=== PATIENT | male | born 1950 | race Hispanic/Latino ===

== ENCOUNTER → 2017-08-29 | Outpatient (CLI) | payer OTHER ==
[~2017-08-29] MED LIST: ASPI-555 PO; ATOR10TA69 PO; CARV25TA PO; CLOP75TA32 PO; DRON400T2 PO; FISH1CAP49 PO; FURO40TA7 PO; GEMF600T3 PO; LOSA1TAB37 PO; LOSA50TA37 PO; NIAC500T22 PO; NIAC500T7 PO; OMEG-98 PO; OMEP20CA10 PO; SOTA120T PO; TAMS-1 PO; TYL3 PO; TYLENOL PM PO; VITA400C25 PO; WARF5TAB8 PO
== END ==
LOC: SHCH 14:01
PROVIDERS: ATTEND Internal Medicine Cardiovascular Disease
DX: R07.9 Chest pain, unspecified (principal); R06.02 Shortness of breath; Z95.1 Presence of aortocoronary bypass graft
CPT/HCPCS: 93306

== ENCOUNTER → 2017-10-26 | Outpatient (CLI) | payer OTHER ==
[~2017-10-26] VITALS: Ht 180.3 cm; Wt 103.0 kg
[~2017-10-26] MED LIST changes: +REGADENOSON 0.4 MG/5 ML PF SYG IVP SCH
== END | disposition home or self-care (01) ==
LOC: SHCH 09:44
PROVIDERS: ATTEND Internal Medicine Cardiovascular Disease
DX: I42.9 Cardiomyopathy, unspecified (principal)
CPT/HCPCS: 78452; 93017; 96374; A9500 ×2; J2785

== ENCOUNTER 2017-12-05 07:22 | Day surgery (SDC) | payer OTHER ==
[2017-11-30 13:36] VITALS: BP 111/67
[2017-11-30 13:45] LABS: BASOPHILS % (AUTO) 0.7 % (0.0-5.0); HEMATOCRIT 35.4 % (42-54); LYMPHOCYTES % (AUTO) 14.1 % (21.0-51.0); MEAN CORPUSCULAR HEMOGLOBIN 28.6 pg (27.0-33.0); MEAN CORPUSCULAR HGB CONC 33.6 g/dL (32.0-36.0); MEAN CORPUSCULAR VOLUME 85.1 fL (79-99); MONOCYTES % (AUTO) 14.9 % (3.0-13.0); NEUTROPHILS % (AUTO) 67.3 % (40.0-77.0); PLATELET COUNT (AUTO) 258 K/uL (130-400); RED BLOOD CELL COUNT(AUTO) 4.16 MIL/uL (4.50-6.20); RED CELL DISTRIBUTION WIDTH 14.9 % (11.0-15.5); WHITE BLOOD COUNT (AUTO) 7.1 K/uL (4.8-10.8)
[2017-11-30 13:55] LABS: POTASSIUM 3.8 mmol/L (3.5-5.1)
[2017-11-30 13:59] LABS: INR 2.37 (0.85-1.15); PARTIAL THROMBOPLASTIN TIME 37.6 SEC (26.3-35.5); PROTHROMBIN TIME 24.5 SEC (9.6-11.6)
[~2017-12-05] VITALS: Ht 180.3 cm; Wt 106.8 kg
[2017-12-05] VITALS (17 sets, daily range): BP systolic 92–137; BP diastolic 58–91
[~2017-12-05 07:22] MED LIST changes: -LOSA1TAB37 PO; -NIAC500T22 PO; -OMEG-98 PO; -REGADENOSON 0.4 MG/5 ML PF SYG IVP SCH; -SOTA120T PO; -TYL3 PO
[2017-12-05] MEDS ORDERED: SODIUM CHLORIDE 0.9% 1000ML 1,000 ML IV SCH (08:00)
== END 2017-12-05 12:15 | disposition home or self-care (01) ==
LOC: DAH 07:22
PROVIDERS: ATTEND Internal Medicine Cardiovascular Disease
DX: I48.1 Persistent atrial fibrillation (principal); I47.2 Ventricular tachycardia; I50.22 Chronic systolic (congestive) heart failure; I25.10 Atherosclerotic heart disease of native coronary artery without angina pectoris; Z79.82 Long term (current) use of aspirin; Z95.810 Presence of automatic (implantable) cardiac defibrillator; Z79.899 Other long term (current) drug therapy; Z95.5 Presence of coronary angioplasty implant and graft; Z88.2 Allergy status to sulfonamides
CPT/HCPCS: 36415; 80048; 85025; 85610; 85730; 92960; 93005; A4606; J7030

== ENCOUNTER → 2018-04-09 | Outpatient (CLI) | payer OTHER ==
[~2018-04-09] MED LIST changes: -GEMF600T3 PO; +GEMF600T4 PO; +LOSA50TA25 PO; -LOSA50TA37 PO
== END | disposition home or self-care (01) ==
LOC: SHCH 09:58
PROVIDERS: ATTEND Internal Medicine Cardiovascular Disease
DX: Z09 Encounter for follow-up examination after completed treatment for conditions other than malignant neoplasm (principal)
CPT/HCPCS: 93971

== ENCOUNTER → 2019-09-12 | Outpatient (CLI) | payer OTHER ==
[~2019-09-12] MED LIST changes: -GEMF600T4 PO; +GEMF600T5 PO; -LOSA50TA25 PO; +LOSA50TA64 PO; -OMEP20CA10 PO; +OMEP20CA12 PO
== END | disposition home or self-care (01) ==
LOC: OIH 09:34
PROVIDERS: ATTEND Family Medicine
DX: I70.201 Unspecified atherosclerosis of native arteries of extremities, right leg (principal)
CPT/HCPCS: 73552

== ENCOUNTER → 2020-10-27 | Outpatient (CLI) | payer OTHER ==
[~2020-10-27] MED LIST changes: -ASPI-555 PO; +ASPI-556 PO; -DRON400T2 PO; +DRON400T7 PO; -GEMF600T5 PO; +GEMF600T89 PO
== END | disposition home or self-care (01) ==
LOC: OIH 10:37
PROVIDERS: ATTEND Neuromusculoskeletal Medicine & OMM
DX: M47.816 Spondylosis without myelopathy or radiculopathy, lumbar region (principal); M48.061 Spinal stenosis, lumbar region without neurogenic claudication; M85.88 Other specified disorders of bone density and structure, other site; I70.0 Atherosclerosis of aorta
CPT/HCPCS: 72114

== ENCOUNTER → 2023-02-09 | Outpatient (CLI) | payer OTHER ==
[~2023-02-09] MED LIST changes: +AEC81 PO; -ASPI-556 PO; -ATOR10TA69 PO; -DRON400T7 PO; +FERS325 PO; -FISH1CAP49 PO; +FOLI1 PO; +GABA-533 PO; -NIAC500T7 PO; +OMEG-148 PO; -OMEP20CA12 PO; +SOTA80TA PO
== END | disposition home or self-care (01) ==
LOC: RAH 14:21
PROVIDERS: ATTEND Urology
DX: K57.30 Diverticulosis of large intestine without perforation or abscess without bleeding (principal); R31.0 Gross hematuria; M47.815 Spondylosis without myelopathy or radiculopathy, thoracolumbar region; I51.7 Cardiomegaly; I25.10 Atherosclerotic heart disease of native coronary artery without angina pectoris; N28.1 Cyst of kidney, acquired
CPT/HCPCS: 74176

== ENCOUNTER → 2024-01-30 | Outpatient (CLI) | payer OTHER ==
[~2024-01-30] MED LIST changes: -GABA-533 PO; +GABA-534 PO
== END | disposition home or self-care (01) ==
LOC: SHCH 08:14
PROVIDERS: ATTEND Internal Medicine Cardiovascular Disease
DX: I08.8 Other rheumatic multiple valve diseases (principal); I48.91 Unspecified atrial fibrillation; Z95.1 Presence of aortocoronary bypass graft; Z95.2 Presence of prosthetic heart valve; Z95.0 Presence of cardiac pacemaker
CPT/HCPCS: 93306

== ENCOUNTER 2024-03-19 23:52 | Observation (INO) | payer OTHER ==
[~2024-03-19] VITALS: Ht 180.3 cm; Wt 96.5 kg
[2024-03-20] VITALS (7 sets, daily range): BP systolic 121–125; BP diastolic 69–77; PULSE 80; RESP 16–20; TEMP 98.1–99.4; O2SAT 95
[2024-03-20 00:33] LABS: BASOPHILS # (AUTO) 0.06 K/uL (0.00-0.20); BASOPHILS % (AUTO) 0.5 % (0.0-5.0); CREATININE 0.9 mg/dL (0.5-1.3); EOSINOPHILS # (AUTO) 0.15 K/uL (0.00-0.70); EOSINOPHILS % (AUTO) 1.3 % (0.0-8.0); HEMATOCRIT 39.7 % (42-54); IMMATURE GRANULOCYTE ABSOLUTE 0.05 K/uL (0-1); LYMPHOCYTES # (AUTO) 1.2 K/uL (1.0-4.8); LYMPHOCYTES % (AUTO) 10.5 % (21.0-51.0); MEAN CORPUSCULAR HEMOGLOBIN 30.9 pg (27.0-33.0); MEAN CORPUSCULAR HGB CONC 34.5 g/dL (32.0-36.0); MEAN CORPUSCULAR VOLUME 89.4 fL (79-99); MONOCYTES # (AUTO) 1.4 K/uL (0.1-1.0); MONOCYTES % (AUTO) 12.5 % (3.0-13.0); NEUTROPHILS # (AUTO) 8.3 K/uL (1.8-7.7); NEUTROPHILS % (AUTO) 74.8 % (40.0-77.0); PLATELET COUNT (AUTO) 299 K/uL (130-400); POTASSIUM 3.8 mmol/L (3.5-5.1); RED BLOOD CELL COUNT(AUTO) 4.44 MIL/uL (4.50-6.20); RED CELL DISTRIBUTION WIDTH 13.2 % (11.0-15.5); WHITE BLOOD COUNT (AUTO) 11.2 K/uL (4.8-10.8)
[2024-03-20 00:56] LABS: B-TYPE NATRIURETIC PEPTIDE 155 pg/mL (0-100)
[2024-03-20] MEDS ORDERED: GLUCAGON 1MG KIT 1 MG ML IM PRN (02:30)
[2024-03-20] MEDS ORDERED: acetaMINOPHEN 325 MG TAB PO PRN (02:30)
[2024-03-20] MEDS ORDERED: TEMAZEPAM 15 MG CAPSULE PO PRN (02:30)
[2024-03-20] MEDS ORDERED: doCUSate SODIUM 100 MG CAP PO PRN (02:30)
[2024-03-20] MEDS ORDERED: DEXTROSE 50%-WATER 50 ML DISP.SYRIN IV PRN (02:30)
[2024-03-20] MEDS ORDERED: MAGNESIUM 2GM PREMIX 50ML 50 ML IV PRN (02:30)
[2024-03-20] MEDS ORDERED: hydrALAZine 20MG/ML VIAL IV PRN (02:30)
[2024-03-20] MEDS ORDERED: LACTULOSE 20 GM/30 ML UDCUP PO PRN (02:30)
[2024-03-20] MEDS ORDERED: POTASSIUM CHLORIDE 20MEQ/100ML 100 ML IV PRN (02:30)
[2024-03-20] MEDS ORDERED: acetaMINOPHEN 650 MG SUPPOSITORY RC PRN (02:30)
[2024-03-20] MEDS: furoSEMIDE 40MG VIAL IV ONE (02:30)
[2024-03-20] MEDS ORDERED: ONDANSETRON 4MG INJ IVP PRN (02:30)
[2024-03-20] MEDS: INSULIN humuLIN R 100 UNIT/ML 3ML SQ SCH (06:42)
[2024-03-20] MEDS ORDERED: TRAM50TA4 PO (07:40)
[2024-03-20] MEDS ORDERED: ATOR10TA69 PO (07:41)
[2024-03-20] MEDS: ASPIRIN 81MG CHEW TAB PO SCH (08:25)
[2024-03-20 10:58] LABS: BASOPHILS # (AUTO) 0.04 K/uL (0.00-0.20); BASOPHILS % (AUTO) 0.4 % (0.0-5.0); EOSINOPHILS % (AUTO) 0.9 % (0.0-8.0); HEMATOCRIT 38.7 % (42-54); IMMATURE GRANULOCYTE ABSOLUTE 0.04 K/uL (0-1); LYMPHOCYTES # (AUTO) 1.1 K/uL (1.0-4.8); LYMPHOCYTES % (AUTO) 10.5 % (21.0-51.0); MEAN CORPUSCULAR HEMOGLOBIN 30.9 pg (27.0-33.0); MEAN CORPUSCULAR HGB CONC 33.6 g/dL (32.0-36.0); MEAN CORPUSCULAR VOLUME 91.9 fL (79-99); MONOCYTES # (AUTO) 1.3 K/uL (0.1-1.0); MONOCYTES % (AUTO) 12.6 % (3.0-13.0); NEUTROPHILS % (AUTO) 75.2 % (40.0-77.0); PLATELET COUNT (AUTO) 284 K/uL (130-400); RED BLOOD CELL COUNT(AUTO) 4.21 MIL/uL (4.50-6.20); RED CELL DISTRIBUTION WIDTH 13.3 % (11.0-15.5); WHITE BLOOD COUNT (AUTO) 10.7 K/uL (4.8-10.8)
[2024-03-20 11:00] LABS: ALBUMIN 3.9 g/dL (3.5-5.0); BILIRUBIN,TOTAL 0.7 mg/dL (0.2-1.0); MAGNESIUM 2.2 mg/dL (1.80-2.40); PHOSPHORUS 3.9 mg/dL (2.5-4.9); POTASSIUM 3.8 mmol/L (3.5-5.1); TOTAL PROTEIN, SERUM 7.4 g/dL (6.0-8.3)
[2024-03-20 11:39] LABS: INR 3.37 (0.85-1.15); PROTHROMBIN TIME 33.3 SEC (9.6-11.6)
[2024-03-20] MEDS ORDERED: furoSEMIDE 40MG VIAL IV SCH (15:00)
[2024-03-20] MEDS ORDERED: atorVAStatin 40 MG TABLET PO SCH (21:00)
== END 2024-03-20 14:00 | disposition home or self-care (01) ==
LOC: EDH 23:52 → EDHIP 03-20 02:09 → 2DH 03-20 04:18
PROVIDERS: ADMIT Internal Medicine Critical Care Medicine; ATTEND Internal Medicine Critical Care Medicine
DX: I25.10 Atherosclerotic heart disease of native coronary artery without angina pectoris (principal); Z95.810 Presence of automatic (implantable) cardiac defibrillator; I11.0 Hypertensive heart disease with heart failure; I50.42 Chronic combined systolic (congestive) and diastolic (congestive) heart failure; E78.5 Hyperlipidemia, unspecified; D72.829 Elevated white blood cell count, unspecified; G47.33 Obstructive sleep apnea (adult) (pediatric); I47.20 Ventricular tachycardia, unspecified; I34.0 Nonrheumatic mitral (valve) insufficiency; I48.19 Other persistent atrial fibrillation; I25.2 Old myocardial infarction; I25.5 Ischemic cardiomyopathy; Z95.1 Presence of aortocoronary bypass graft; Z79.01 Long term (current) use of anticoagulants; Z79.899 Other long term (current) drug therapy; Z88.2 Allergy status to sulfonamides; Z95.2 Presence of prosthetic heart valve
CPT/HCPCS: 96374; 99285; 82550; 83735; 84100; 84484 ×3; 80053; 83880; 85025 ×2; 85610; 82948; 36415; 71045; 93005; 84145; G0378 ×12; J1940; 80048

== ENCOUNTER → 2024-04-22 | Outpatient (CLI) | payer OTHER ==
[~2024-04-22] MED LIST changes: -AEC81 PO; +ATOR10TA69 PO; -CLOP75TA32 PO; -GABA-534 PO; +IOHEXOL 350 MG/ML 100ML INFUS..BTL IV ONE; -TAMS-1 PO; +TRAM50TA4 PO
== END | disposition home or self-care (01) ==
LOC: RAH 09:39
PROVIDERS: ATTEND Internal Medicine Cardiovascular Disease
DX: I25.10 Atherosclerotic heart disease of native coronary artery without angina pectoris (principal); R07.9 Chest pain, unspecified
CPT/HCPCS: 75574; Q9967

== ENCOUNTER 2024-09-24 06:57 | Emergency (ER) | payer OTHER ==
[~2024-09-24] VITALS: Ht 180.3 cm; Wt 102.1 kg
[~2024-09-24 06:57] MED LIST changes: -IOHEXOL 350 MG/ML 100ML INFUS..BTL IV ONE
--- NOTE | 2024-09-24 07:36 | ERN ---
General Chief Complaint: Congestion Stated Complaint: CHEST CONGESTION Time Seen by MD: 07:12 Source: patient, family History of Present Illness Initial Comments Patient is a 73-year-old gentleman coming in to be evaluated for cough. Per patient he has been having a cough for two days. Does has a history of CAD in his on diuretics for CHF as well. He was exposed to same symptoms by family members. No Fever or chills. Allergies: Coded Allergies: sulfamethoxazole (Unverified Allergy, Unknown, 06/15/16) trimethoprim (Unverified Allergy, Unknown, 06/15/16) Home Meds Active Scripts Folic Acid (Folvite) 1 Mg Tab, 1 MG PO DAILY for 30 Days, #30 TAB 0 Refills Prov:DARRIAN AYALA FLARE BREAKER 02/28/21 Reported Medications Atorvastatin Calcium (Atorvastatin Calcium) 10 Mg Tablet, 10 MG PO HS, TAB 03/20/24 Tramadol Hcl (Tramadol HCl) 50 Mg Tablet, 50 MG PO Q6HPRN PRN for PAIN, TAB 03/20/24 Losartan Potassium (Losartan Potassium) 50 Mg Tablet, 50 MG PO HS, TAB 02/26/21 Warfarin Sodium (Jantoven) 5 Mg Tablet, 5 MG PO HS, TAB 02/26/21 Gemfibrozil (Gemfibrozil) 600 Mg Tablet, 600 MG PO BID, TAB 02/26/21 Carvedilol (Carvedilol) 25 Mg Tablet, 25 MG PO BID, TAB 02/26/21 Ferrous Sulfate (Ferrous Sulfate) 325 Mg Ectab, 325 MG PO BID, TAB.EC 02/26/21 Sotalol HCl (Sotalol) 80 Mg Tablet, 80 MG PO BID, TAB 02/26/21 Layton-3S/Dha/Epa/Fish Oil (Fish Oil 1,000 mg Softgel) 1 Each Capsule, 1 EACH PO DAILY, CAP 02/26/21 Furosemide (Lasix 40Mg Tab) 40 Mg Tablet, 40 MG PO DAILY, TAB 11/30/17 [Tylenol Pm] No Conflict Check, 250 MG PO AD PRN for PRN PAIN 11/30/17 Vitamin E (Vitamin E) 400 Unit Capsule, 400 UNIT PO DAILY, CAP 11/30/17 Past Medical History Past Medical History: CHF, High Cholesterol, Heart Disease, Hypertension Past Surgical History: CABG, Other Surgical History Other: MECHANICAL VALVE REPLACEMENT ROS Dictation CONSTITUTIONAL: No chills, no fever, no weakness, no diaphoresis, no malaise. HEAD/FACE: No signs of trauma. EENT: No eye pain, no blurred vision, no tearing, no double vision, no ear pain, no ear discharge, no nose pain, no nasal congestion, no throat pain, no throat swelling, no mouth pain. RESPIRATORY: No cough, no orthopnea, no SOB, no stridor, no wheezing. CARDIOVASCULAR: No chest pain, no edema, no palpitations, no syncope. GASTROINTESTINAL/ABDOMINAL: No abdominal pain, no constipation, no diarrhea, no nausea, no vomiting. GENITOURINARY: No abnormal discharge, no dysuria, no frequent urination, no hematuria. No complaints of pain in the genitals. MUSCULOSKELETAL: No back pain, no gout, no joint pain, no joint swelling, no muscle pain, no muscle stiffness, no neck pain. INTEGUMENTARY: No change in color, no change in hair/nails, no dryness, no lesion, no lumps, no rash. NEUROLOGICAL/PSYCH: No anxiety, not depressed, no emotional problem, no headache, no numbness, no pre-existing deficit, no history of seizures, no tremors, no weakness. HEMATOLOGIC/LYMPHATIC: Not anemic, no history of blood clots, no apparent bleeding, no bruising, glands not swollen. All Systems Negative, Except as Noted. Physical Exam Physical Exam Dictation VITAL SIGNS: Reviewed. GENERAL APPEARANCE: Alert, oriented x3, no acute distress, obese. HEAD AND FACE: Non-traumatic. EYES: PERRL, pink conjunctivas, eyelid no trauma, anterior chamber clear. EARS: Pinnas intact and no signs of trauma or erythema. Ear canals clear and no discharge. TMs no erythema. NOSE: No discharge, no bleeding. OROPHARYNX: Mouth normal, teeth no caries, tongue pink. Pharynx clear, no erythema. Tonsils no exudates, no abscesses noted. Mucous membrane moist. NECK: Supple, non-tender, no thyromegaly, no masses, no JVD, no bruits. BREAST: Deferred. CHEST: No tenderness, no crepitus, no paradoxical movement, no retractions. LUNGS: Clear, well-ventilated, symmetric, no rales, no wheezing, no rhonchi, no stridor, good breath sounds bilaterally. HEART: Regular rate, regular rhythm, no murmur, no gallops. VASCULAR: No peripheral edema. ABDOMEN: Soft, positive bowel sounds, nondistended, no guarding, nontender, no rebound, no masses no hepatomegaly, no splenomegaly, no Woods's sign, no hernias. RECTAL: Deferred. GENITAL: Deferred. NEUROLOGICAL: Normal speech, gross motor function intact, gross sensory function intact. MUSCULOSKELETAL: Neck nontender, full range of motion, back nontender, full range of motion. EXTREMITIES: Nontender, full range of motion. SKIN: Color pink, dry, no turgor, no rash, no lacerations, no abrasions, no contusions. LYMPHATICS: Deferred. Results Laboratory and Microbiology Lab and Micro Result Laboratory Tests Test 09/24/24 07:04 09/24/24 07:07 09/24/24 07:28 Sodium Level 140 mmol/L (136-145) Potassium Level 3.5 mmol/L (3.5-5.1) Chloride Level 104 mmol/L (101-111) Carbon Dioxide Level 30 mmol/L (21-32) Blood Urea Nitrogen 19 mg/dL (7-18) H Creatinine 0.8 mg/dL (0.5-1.3) Glomerular Filtration Rate Calc 93 mL/min (>90) Random Glucose 114 mg/dL (70-105) H Total Calcium 8.8 mg/dL (8.5-10.1) Troponin I High Sensitivity 10 ng/L (4-75) Influenza Type A Antigen Negative For Type A Influenza Type B Antigen Negative For Type B SARS-CoV-2, RNA, NAAT NEGATIVE SARS CoV-2 Group A Streptococcus Rapid negative (NEGATIVE) White Blood Count 11.7 K/uL (4.8-10.8) H Red Blood Count 3.73 MIL/uL (4.50-6.20) L Hemoglobin 11.4 g/dL (14.0-18.0) L Hematocrit 34.6 % (42-54) L Mean Corpuscular Volume 92.8 fL (79-99) Mean Corpuscular Hemoglobin 30.6 pg (27.0-33.0) Mean Corpuscular Hemoglobin Concent 32.9 g/dL (32.0-36.0) Red Cell Distribution Width 13.3 % (11.0-15.5) Platelet Count 273 K/uL (130-400) Mean Platelet Volume 8.8 fL (7.5-10.5) Immature Granulocyte % (Auto) 0.3 % (0-1) Neutrophils (%) (Auto) 83.4 % (40.0-77.0) H Lymphocytes (%) (Auto) 4.5 % (21.0-51.0) L Monocytes (%) (Auto) 10.4 % (3.0-13.0) Eosinophils (%) (Auto) 1.0 % (0.0-8.0) Basophils (%) (Auto) 0.4 % (0.0-5.0) Neutrophils # (Auto) 9.7 K/uL (1.8-7.7) H Lymphocytes # (Auto) 0.5 K/uL (1.0-4.8) L Monocytes # (Auto) 1.2 K/uL (0.1-1.0) H Eosinophils # (Auto) 0.12 K/uL (0.00-0.70) Basophils # (Auto) 0.05 K/uL (0.00-0.20) Absolute Immature Granulocyte (auto 0.04 K/uL (0-1) Nucleated Red Blood Cells 0.0 % (0.0-0.19) White Cell Morphology Comment See comments B-Type Natriuretic Peptide 212 pg/mL (0-100) H Labs Reviewed?: Yes EKG/XRAY/US/CT/MRI X-RAY Comment CHEST XRAY- PERIBRONCHIAL CONGESTION, BRONCHITIS MDM MDM: DIFFERENTIAL DIAGNOSIS: URI, BRONCHITIS, PNEUMONIA, SINUSITIS, PATIENT IS A 73-YEAR-OLD MALE COMING IN TO BE EVALUATED FOR URI SYMPTOMS. ON PHYSICAL EXAM BILATERAL NASAL TURBINATE SWELLING MILD CRACKLES. PATIENT RECEIVED BREATHING TREATMENT STATES HE FEELS MUCH BETTER WILL BE DISCHARGED IN STABLE CONDITION WITH A DIAGNOSIS OF URI. MEDICATION WILL BE PROVIDED FOR SYMPTOMATIC RELIEF. I DID ADVISED HIM APPROPRIATE FOLLOW UP WITH PCP IN 1-2 DAYS. ED Course Orders Procedure Category Date Status Time Cbc With Differential LAB 09/24/24 Complete 07:09 Basic Metabolic Panel LAB 09/24/24 Complete 07:09 Troponin I High LAB 09/24/24 Complete Sensitivity 07:09 12 Lead Ekg Tracing- EKG 09/24/24 Complete Technical 07:09 Chest 1vw RAD 09/24/24 Taken 07:09 Covid Rna Naat LAB 09/24/24 Complete 07:09 Influenza Type A & B, LAB 09/24/24 Complete Rapid 07:09 Rapid (Group A Strep) LAB 09/24/24 Complete 07:09 B-Type Natriuretic LAB 09/24/24 Complete Peptide 07:09 Methylprednisolone PHA 09/24/24 Complete Succ 125mg (Solu-Medr 09:00 Ipratropium/Albuterol PHA 09/24/24 Complete Neb (Duoneb) 09:00 Current Medications Medications (Trade) Dose Ordered Sig/Serina Route PRN Reason Start Time Stop Time Status Last Admin Dose Admin Albuterol (DUOneb) 2 udvial ONCE ONCE IH 09/24/24 09:00 09/24/24 09:01 DC Methylprednisolone Sodium Succinate (Solu-medROL 125MG) 125 mg ONCE ONCE IVP 09/24/24 09:00 09/24/24 09:01 DC 09/24/24 09:17 Vital Signs Date Time Temp Pulse Resp B/P (MAP) Pulse Ox O2 Delivery O2 Flow Rate FiO2 09/24/24 06:59 98.1 79 18 135/73 95 Room Air 0 09/24/24 06:58 98.2 80 26 124/70 94 Room Air* 0 21 DX & DISP Disposition: Discharge Departure Impression: Primary Impression: URI (upper respiratory infection) Condition: Stable Scripts Loratadine (Loratadine) 10 Mg Tablet 1 TAB PO DAILY for allergy symptoms for 30 Days, #30 TAB 0 Refills Prov: HUMBERTO BINGHAM MD 09/24/24 Doxycycline Hyclate (Doxycycline Hyclate) 100 Mg Capsule 1 CAP PO BID for 10 Days, #20 CAP 0 Refills Prov: HUMBERTO BINGHAM MD 09/24/24 Budesonide/Formoterol Fumarate (Symbicort 160-4.5 Mcg Inhaler) 160 Mcg-4.5 Mcg/Actuation Hfa.aer.ad 2 PUFF IH BID for 30 Days, #10.2 GM 0 Refills Prov: HUMBERTO BINGHAM MD 09/24/24 Additional Instructions: FOLLOW-UP WITH PRIMARY CARE PROVIDER IN 1 TO 2 DAYS. TAKE MEDICATIONS DIRECTED HERE IN THE EMERGENCY ROOM. OKAY TO CONTINUE HOME MEDICATIONS UNLESS OTHERWISE DISCUSSED DURING YOUR VISIT IN THE EMERGENCY ROOM TODAY. RETURN TO YOUR NEAREST EMERGENCY ROOM IF SYMPTOMS WORSEN OR IF THERE IS NO IMPROVEMENT. CALL 911 IF YOU NEED IMMEDIATE ASSISTANCE. TAKE TYLENOL [id number] NEEDED AND IF NO CONTRAINDICATIONS ARE PRESENT. INCREASE ORAL HYDRATION. A WOUND CULTURE OR URINE CULTURE WAS ORDERED HERE IN THE EMERGENCY ROOM DEPARTMENT PLEASE FOLLOW-UP WITH PRIMARY CARE PROVIDER AND ADVISE THEM TO GET REPEAT PORTS FROM OUR FACILITY. IF YOU HAD ANY ROSALIND WRAP/SPLINTS THAT WERE APPLIED HERE, PLEASE DO NOT REMOVE THEM UNTIL YOU SEE YOUR PRIMARY CARE OR SPECIALTY. REFERRALS: Referrals: GABBY ABDALLA MD (PCP) Time of Disposition: 09:55 HUMBETRO BINGHAM MD Sep 24, 2024 07:36
[2024-09-24 07:38] LABS: BASOPHILS # (AUTO) 0.05 K/uL (0.00-0.20); BASOPHILS % (AUTO) 0.4 % (0.0-5.0); EOSINOPHILS # (AUTO) 0.12 K/uL (0.00-0.70); HEMATOCRIT 34.6 % (42-54); IMMATURE GRANULOCYTE ABSOLUTE 0.04 K/uL (0-1); LYMPHOCYTES # (AUTO) 0.5 K/uL (1.0-4.8); LYMPHOCYTES % (AUTO) 4.5 % (21.0-51.0); MEAN CORPUSCULAR HEMOGLOBIN 30.6 pg (27.0-33.0); MEAN CORPUSCULAR HGB CONC 32.9 g/dL (32.0-36.0); MEAN CORPUSCULAR VOLUME 92.8 fL (79-99); MONOCYTES # (AUTO) 1.2 K/uL (0.1-1.0); MONOCYTES % (AUTO) 10.4 % (3.0-13.0); NEUTROPHILS # (AUTO) 9.7 K/uL (1.8-7.7); NEUTROPHILS % (AUTO) 83.4 % (40.0-77.0); PLATELET COUNT (AUTO) 273 K/uL (130-400); RED BLOOD CELL COUNT(AUTO) 3.73 MIL/uL (4.50-6.20); RED CELL DISTRIBUTION WIDTH 13.3 % (11.0-15.5); WHITE BLOOD COUNT (AUTO) 11.7 K/uL (4.8-10.8)
[2024-09-24 07:42] LABS: RAPID GROUP A STREP negative (NEGATIVE)
[2024-09-24 07:48] LABS: SARS-CoV-2, RNA, NAAT NEGATIVE SARS CoV-2 (NEGATIVE)
--- NOTE | 2024-09-24 07:51 | EKG ---
[facility] Test Date: 2024-09-24 Test Time: 06:57:52 Pat Name: SINDHU CORMIER Department: ED Room: Gender: M Lifestyle Coordinator: [id number] : 1950 Requested By: REGINALD ARTIS Order Number: [id number] Reading MD: Kirk Higgins Measurements Intervals [place] Rate: 82 P: -12 CT: 56 QRS: -5 QRSD: 118 T: 129 QT: 415 QTc: 484 Interpretive Statements Ventricular-paced complexes with PVC Compared to ECG 03/20/2024 00:05:32 No significant changes Electronically Signed On 09-25-2024 13:39:20 CDT by Kirk Higgins Please click the below link to view image of tracing.
[2024-09-24 07:52] LABS: INFLUENZA TYPE A Negative For Type A (NEGATIVE); INFLUENZA TYPE B Negative For Type B (NEGATIVE)
[2024-09-24 08:00] VITALS: BP 132/76; TEMP 98.4; O2SAT 98
[2024-09-24 08:02] LABS: B-TYPE NATRIURETIC PEPTIDE 212 pg/mL (0-100)
[2024-09-24 08:44] LABS: CREATININE 0.8 mg/dL (0.5-1.3); POTASSIUM 3.5 mmol/L (3.5-5.1)
[2024-09-24] MEDS: Solu-medROL 125MG VIAL IVP ONE (09:17)
[2024-09-24] MEDS ORDERED: LORA10TA7 PO (09:56)
[2024-09-24] MEDS ORDERED: BUDE10.2 IH (09:56)
[2024-09-24] MEDS ORDERED: DOXY100C5 PO (09:56)
[2024-09-24 10:25] VITALS: PULSE 79; RESP 20
[2024-09-24] MEDS: IpraTROPium/alBUTERol SULFATE 3 ML SOLUTION IH ONE (10:25)
--- NOTE | 2024-09-24 11:28 | HMCIMG ---
PORTABLE CHEST RADIOGRAPH INDICATION: SOB COMPARISON: 03/20/2024 FINDINGS: Median sternotomy wires are in appropriate alignment. Left sided dual chamber pacer and continuous leads remain in customary position. front desk monitor leads overlie the field of view. Heart remains enlarged. The pulmonary vascularity appears nominally enlarged. No abnormal pulmonary parenchymal opacity or consolidation identified. Right costophrenic angle is nominally blunted. No pneumothorax detected. IMPRESSION: Stable cardiomegaly and suspect early mild pulmonary vascular congestion as well as very trace right pleural fluid.
== END 2024-09-24 11:41 | disposition home or self-care (01) ==
LOC: EDH 06:57
DX: J06.9 Acute upper respiratory infection, unspecified (principal); E78.00 Pure hypercholesterolemia, unspecified; I25.10 Atherosclerotic heart disease of native coronary artery without angina pectoris; I11.0 Hypertensive heart disease with heart failure; I50.9 Heart failure, unspecified; Z79.51 Long term (current) use of inhaled steroids; Z79.899 Other long term (current) drug therapy; Z88.1 Allergy status to other antibiotic agents; Z88.2 Allergy status to sulfonamides; Z95.1 Presence of aortocoronary bypass graft; Z95.2 Presence of prosthetic heart valve; Z20.822 Contact with and (suspected) exposure to COVID-19
CPT/HCPCS: 99285; 96374; 71045; 87635; 84484; 80048; 83880; 85025; 87880; 87804 ×2; 36415; 93005; 94640; J2919

== ENCOUNTER 2025-04-23 05:56 | Day surgery (SDC) | payer OTHER ==
--- NOTE | 2025-04-21 10:34 | EKG ---
Test Date: 2025-04-21 Test Time: 10:32:13 Pat Name: SINDHU CORMIER Department: [facility] Room: [facility] Gender: M Fibreglass Laminator: [id number] : 1950 Requested By: SHAYE SOUTH Order Number: [id number] Reading MD: Debby Carlson Measurements Intervals [place] Rate: 80 P: 0 MS: 0 QRS: -8 QRSD: 160 T: 162 QT: 440 QTc: 507 Interpretive Statements Wide QRS rhythm Left bundle branch block Compared to ECG 04/01/2025 10:44:12 Uncertain supraventricular rhythm now present Left bundle-branch block now present Ventricular-paced complex(es) or rhythm no longer present Electronically Signed On 04-23-2025 10:15:21 CDT by Debby Carlson Please click the below link to view image of tracing.
[2025-04-21 10:44] LABS: IMMATURE GRANULOCYTE ABSOLUTE 0.03 K/uL (0-1); NUCLEATED RED BLOOD CELLS 0.0 % (0.0-0.19); PLATELET COUNT (AUTO) 215 K/uL (130-400); RED BLOOD CELL COUNT(AUTO) 3.69 MIL/uL (4.50-6.20); RED CELL DISTRIBUTION WIDTH 13.5 % (11.0-15.5); WHITE BLOOD COUNT (AUTO) 5.4 K/uL (4.8-10.8)
[2025-04-21 10:51] LABS: CREATININE 0.8 mg/dL (0.5-1.3); GLOMERULAR FILTR. RATE CALC 92.0 mL/min (>90); GLUCOSE,RANDOM 143.0 mg/dL (70-105); SODIUM SERUM 142.0 mmol/L (136-145); UREA NITROGEN, BLOOD 19.0 mg/dL (7-18)
[2025-04-21 10:59] LABS: INR 2.8 (0.85-1.15)
[2025-04-21 11:00] VITALS: BP 138/72; PULSE 81; RESP 17; TEMP 97.4
--- NOTE | 2025-04-21 13:48 | NUR ---
INSTRUCTED PATIENT TO HOLD WARFARIN TODAY 04/21/25 AND TOMORROW. REPEAT INR ON THE MORNING OF PROCEDURE PER [facility]
[2025-04-23] VITALS (8 sets, daily range): BP systolic 115–132; BP diastolic 59–73; PULSE 60–81; RESP 15–19; TEMP 96.4–98.1
[~2025-04-23] VITALS: Ht 180.3 cm; Wt 103.3 kg
[~2025-04-23 05:56] MED LIST changes: +ACET-66 PO; +FERR324T4 PO; -FERS325 PO; -OMEG-148 PO; +OMEG1CAP83 PO; +TYLENOL ARTHRITIS PO; -TYLENOL PM PO; +VITA-395 PO; -VITA400C25 PO; +WARF3TAB59 PO; -WARF5TAB8 PO
[2025-04-23 06:35] LABS: INR 1.54 (0.85-1.15)
[2025-04-23] MEDS: 0.9%NACL 1000ML 1,000 ML IV SCH (06:35)
--- NOTE | 2025-04-23 07:00 | NUR ---
ABNORMAL LAB: SHAYE NASH MADE AWARE OF PT: 15.6 AND INR 1.54, NO ORDERS GIVEN.
[2025-04-23] MEDS ORDERED: SODIUM BICARB 50MEQ 50ML VIAL 50 ML ONE (07:16)
[2025-04-23] MEDS ORDERED: LIDOCAINE HCL 1% MDV 50ML VIAL ONE (07:16)
[2025-04-23] MEDS ORDERED: MIDAZOLAM HCL 1 MG/ML 2ML VIAL ONE ×3 (07:44→08:56)
[2025-04-23] MEDS ORDERED: IOHEXOL-350 50ML VIAL IV ONE ×2 (07:49→08:44)
[2025-04-23] MEDS ORDERED: BACITRACIN 1 EACH PACKET TP ONE (09:53)
--- NOTE | 2025-04-23 10:27 | NUR ---
DRESSING: PRESSURE DRESSING TO LEFT UPPER CHEST DRY/INTACT. LEFT ARM IN PLACE TO SLING.
[2025-04-23] MEDS: WARFARIN SODIUM 2 MG TAB PO ONE (10:34)
--- NOTE | 2025-04-23 10:42 | NUR ---
dressing: pressure dressing to left upper chest remains dry/intact with arm sling in place to left arm.
--- NOTE | 2025-04-23 10:57 | NUR ---
dressing: pressure dressing to left upper chest remans dry/intact with arm sling in place to left arm.
--- NOTE | 2025-04-23 11:12 | NUR ---
dressing: pressure dressing to left upper chest remains dry/intact with arm sling in place to left arm.
--- NOTE | 2025-04-23 11:42 | NUR ---
dressing: pressure dressing to left upper chest remains dry/intact with arm sling in place to left arm.
--- NOTE | 2025-04-23 12:12 | NUR ---
DRESSING: PRESSURE DRESSING TO LEFT UPPER CHEST DRY/INTACT WITH ARM SLING IN PLACE TO LEFT ARM.
--- NOTE | 2025-04-23 12:20 | NUR ---
dressing: pressure dressing removed with no redness/swelling noted to surrounding area. non-adhesive dressing with small amount of light pinkish drainage.
--- NOTE | 2025-04-23 12:55 | NUR ---
DRESSING: DRESSING TO LEFT UPPER CHEST WITH SMALL AMOUNT OF PINKISH DRAINAGE. NO ACTIVE BLEEDING PRESENT. NO REDNESS/SWELLING NOTED TO SURROUNDING AREA.
--- NOTE | 2025-04-23 14:44 | HMCIMG ---
EXAM: X-RAY CHEST, ONE VIEW (PORTABLE FRONTAL PROJECTION) Technique: A portable frontal projection of the chest was obtained and submitted for interpretation. Clinical Information: Status post cardiac resynchronization therapy (AUDIT PARTNER) device upgrade. Comparison: None available. Findings: The cardiac silhouette is enlarged, consistent with cardiomegaly. There is mild pulmonary vascular congestion. A multilead cardiac pacemaker/AUDIT PARTNER device is visualized in the left chest wall, with intact leads in satisfactory position. Post-sternotomy changes are identified. The pulmonary mosley are otherwise clear without infiltrates, consolidation, or pleural effusion. The costophrenic angles are sharp bilaterally. No pneumothorax is seen. The visualized osseous structures, including ribs and thoracic spine, show no acute abnormality. IMPRESSION: 1. Cardiomegaly with mild pulmonary vascular congestion. 2. Cardiac pacemaker/AUDIT PARTNER device in left chest wall with intact leads in satisfactory position, status post upgrade. 3. Post-sternotomy changes. 4. No pneumothorax, pleural effusion, or pulmonary infiltrates. 5. No acute osseous abnormalities of the visualized structures. /[place]
== END 2025-04-23 12:55 | disposition home or self-care (01) ==
LOC: DAH 05:56
PROVIDERS: ATTEND Internal Medicine Cardiovascular Disease
DX: Z45.02 Encounter for adjustment and management of automatic implantable cardiac defibrillator (principal); I25.5 Ischemic cardiomyopathy; I49.5 Sick sinus syndrome; I44.7 Left bundle-branch block, unspecified; I25.10 Atherosclerotic heart disease of native coronary artery without angina pectoris; I25.2 Old myocardial infarction; I47.20 Ventricular tachycardia, unspecified; I50.42 Chronic combined systolic (congestive) and diastolic (congestive) heart failure; I48.91 Unspecified atrial fibrillation; Z95.1 Presence of aortocoronary bypass graft; Z95.5 Presence of coronary angioplasty implant and graft; Z88.1 Allergy status to other antibiotic agents; Z79.899 Other long term (current) drug therapy
CPT/HCPCS: 80048; 85025; 85610 ×2; 85730; 36415 ×2; 93005; 33264; 33225; 71045; 99156; 99157 ×6; C1769 ×2; C1882; C1900; J3010 ×3; J0690; J7030; J0665; J3490 ×2; J2250 ×3; Q9967 ×2; A4215; A4222; A4221; A4663; A4216; A4606; A4223 ×3

== ENCOUNTER 2025-06-25 13:30 | Emergency (ER) | payer OTHER ==
[~2025-06-25] VITALS: Ht 182.9 cm; Wt 102.1 kg
[~2025-06-25 13:30] MED LIST changes: +ACET-3540 PO; -ACET-66 PO; +AMIO200T44 PO; +AMIO200T73 PO; -CARV25TA PO; +METO50 PO; -SOTA80TA PO; -TYLENOL ARTHRITIS PO; -WARF3TAB59 PO; +[UNRECOGNIZED DRUG - CODE] PO; +[UNRECOGNIZED DRUG - OTHER] PO
--- NOTE | 2025-06-25 13:39 | NUR ---
PT JUST NOW PLACED IN MY ED BED 14
--- NOTE | 2025-06-25 13:50 | ERN ---
ED Note History of Present Illness Stated Complaint: FAST HEART RATE Chief Complaint: Chest Pain Time Seen by MD: 13:38 Dictation: Patient is a 74-year-old male with a past medical history of CAD, status post CABG , recurrent ventricular tachycardia, status post Bi V ICD placement. The patient states that he is having chest pain since 11:00 a.m., it was 3 hours prior to presentation to this facility. He said that in April 27, 2025 he had his defibrillator device replaced due to malfunction. I review his chart, patient has ejection fraction of 25-30%. Patient EKG on presentation showed ectopic atrial tachycardia rate 145, atrial premature complex. Allergies: Coded Allergies: sulfamethoxazole (Unverified Allergy, Unknown, 06/15/16) trimethoprim (Unverified Allergy, Unknown, 06/15/16) Home Meds Active Scripts Amiodarone HCl (Amiodarone HCl) 200 Mg Tablet, 1 TAB PO DAILY for 30 Days, #30 TAB 2 Refills Prov:SCOTTIE ESPANA MD 05/04/25 Amiodarone HCl (Pacerone) 200 Mg Tablet, 400 MG PO BID for 2 Days, #3 TAB Prov:SCOTTIE ESPANA MD 05/04/25 Metoprolol Tartrate (Lopressor 50Mg Tab) 50 Mg Tab, 50 MG PO TID for 30 Days, #90 TAB 1 Refill Prov:SCOTTIE ESPANA MD 05/04/25 Reported Medications Acetaminophen (8Hr Arthritis Pain Relief) 650 Mg Tablet.er, 650 MG PO Q8 for PAIN, TAB 04/28/25 Acetaminophen/Diphenhydramine (Tylenol Pm Exstr 500-25Mg Cplt) 500 Mg-25 Mg Tablet, 2 EACH PO HS, TAB 04/28/25 [Jentoven 3M Qhs] No Conflict Check, 3 MG PO Q HS 04/28/25 Ferrous Sulfate (Ferrous Sulfate) 324 Mg (65 Mg Iron) Tablet.dr, 324 MG PO BID, TAB 04/21/25 Vitamin E (Dl,Tocopheryl Acet) (Vitamin E) 180 Mg (400 Unit) Capsule, 180 MG PO AM, CAP 04/21/25 [place]-3/Dha/Epa/Fish Oil (Fish Oil 1,400 mg Softgel) 900 Mg (253 Mg-647 Mg)- 1,400 Mg Capsule.dr, 1 EACH PO AM, CAP 04/21/25 Folic Acid (Folvite) 1 Mg Tab, 1 MG PO HS, TAB 04/01/25 Atorvastatin Calcium (Atorvastatin Calcium) 10 Mg Tablet, 10 MG PO HS, TAB 03/20/24 Tramadol Hcl (Tramadol HCl) 50 Mg Tablet, 50 MG PO Q6HPRN PRN for PAIN, TAB 03/20/24 Losartan Potassium (Losartan Potassium) 50 Mg Tablet, 50 MG PO HS, TAB 02/26/21 Gemfibrozil (Gemfibrozil) 600 Mg Tablet, 600 MG PO BID, TAB 02/26/21 Furosemide (Lasix 40Mg Tab) 40 Mg Tablet, 40 MG PO DAILY, TAB 11/30/17 Past Medical History Past Medical History: Arrythmia, CAD, Heart Disease, Hypertension Surgical History: CABG, Pacer/AICD Surgical History Other: MECHANICAL VALVE REPLACEMENT Review of System Dictation NEGATIVE EXCEPT PER HPI Constitutional: Negative for fever,chills, and weight loss Eyes: Negative for injury, pain,redness, and discharge ENT: Negative for injury,pain or swelling Cardiovascular: He reports chest pain palpitation Respiratory: Negative for shortness of breath, cough, and wheezing, Abdomen/GI: Negative for abdominal pain, nausea, vomiting, diarrhea, and constipation Back: Negative for injury and pain : Negative for injury, bleeding and discharge MS/Extremity: Negative for injury and deformity Skin: Negative for rash, and discoloration Neuro: Negative for headache, weakness, numbness, tingling, and seizure Psych: Negative for suicide ideation, homicidal ideation, and hallucinations Initial Vital Sign VS Vital Signs Date Time Temp Pulse Resp B/P (MAP) Pulse Ox O2 Delivery O2 Flow Rate FiO2 06/25/25 13:32 98.2 145 16 102/65 99 Room Air 06/25/25 13:55 0 21 Physical Exam Dictation General: awake, alert, NAD Head/Face: Normocephalic, atraumatic Eyes: PERRL, EOMI, vision at baseline ENT: oral cavity clear, TMs clear, no signs of infection Neck: Trachea midline, supple, no nuchal rigidity Cardiovascular: Irregular heart rate, tachycardia. Respiratory: CTAB, no respiratory distress, No rales or wheezes Abdomen: Soft , no tender Skin: Warm, dry, normal turgor, no rash MS/Extremity: Pulses equal, no cyanosis, neurovascular intact, FROM Neuro: COAx4, GCS 15, strength 5/5, CN 2-12 intact, normal cerebellar exam, normal gait, Psych: Normal behavior, mood, and affect normal Results (Laboratory/Radiology) Laboratory/Radiology Laboratory Tests Test 06/25/25 13:47 06/25/25 16:12 White Blood Count 8.6 K/uL (4.8-10.8) Red Blood Count 3.81 MIL/uL (4.50-6.20) L Hemoglobin 11.2 g/dL (14.0-18.0) L Hematocrit 35.5 % (42-54) L Mean Corpuscular Volume 93.2 fL (79-99) Mean Corpuscular Hemoglobin 29.4 pg (27.0-33.0) Mean Corpuscular Hemoglobin Concent 31.5 g/dL (32.0-36.0) L Red Cell Distribution Width 17.3 % (11.0-15.5) H Platelet Count 332 K/uL (130-400) Mean Platelet Volume 8.9 fL (7.5-10.5) Immature Granulocyte % (Auto) 0.6 % (0-1) Neutrophils (%) (Auto) 75.5 % (40.0-77.0) Lymphocytes (%) (Auto) 8.8 % (21.0-51.0) L Monocytes (%) (Auto) 13.2 % (3.0-13.0) H Eosinophils (%) (Auto) 1.3 % (0.0-8.0) Basophils (%) (Auto) 0.6 % (0.0-5.0) Neutrophils # (Auto) 6.5 K/uL (1.8-7.7) Lymphocytes # (Auto) 0.8 K/uL (1.0-4.8) L Monocytes # (Auto) 1.1 K/uL (0.1-1.0) H Eosinophils # (Auto) 0.11 K/uL (0.00-0.70) Basophils # (Auto) 0.05 K/uL (0.00-0.20) Absolute Immature Granulocyte (auto 0.05 K/uL (0-1) Nucleated Red Blood Cells 0.0 % (0.0-0.19) White Cell Morphology Comment See comments Prothrombin Time 31.3 SEC (9.6-11.6) H Prothromb Time International Ratio 3.33 (0.85-1.15) H Activated Partial Thromboplast Time 41.7 SEC (26.3-35.5) H Sodium Level 139 mmol/L (136-145) Potassium Level 3.9 mmol/L (3.5-5.1) Chloride Level 103 mmol/L (101-111) Carbon Dioxide Level 28 mmol/L (21-32) Blood Urea Nitrogen 16 mg/dL (7-18) Creatinine 0.9 mg/dL (0.5-1.3) Glomerular Filtration Rate Calc 89 mL/min (>90) Random Glucose 131 mg/dL (70-105) H Total Calcium 9.3 mg/dL (8.5-10.1) Total Creatine Kinase 388 U/L (21-232) #H Troponin I High Sensitivity 9 ng/L (4-75) 11 ng/L (4-75) EKG Comment: EKG heart rate 145, showed ectopic atrial tachycardia. NH 146, QT 376, Atrial fibrillation ED Course ED Course Orders Procedure Category Date Status Time Vital Signs Per CPOE 06/25/25 Transmitted Routine 13:44 Prothrombin Time With LAB 06/25/25 Complete INR 13:44 Partial LAB 06/25/25 Complete Thromboplastin Time 13:44 Chest 1vw RAD 06/25/25 Resulted 13:44 12 Lead Ekg Tracing- EKG 06/25/25 Resulted Technical 13:44 Oxygen By Nc/Pulse Ox CPOE 06/25/25 Transmitted 13:44 Maintain Iv CPOE 06/25/25 Transmitted 13:44 Iv Insertion CPOE 06/25/25 Transmitted 13:44 Cardiac Monitoring CPOE 06/25/25 Transmitted 13:44 Pulse Oximetry With CPOE 06/25/25 Transmitted Vs And Prn 13:44 Cbc With Differential LAB 06/25/25 Complete 13:44 Activity: Br W/Brp CPOE 06/25/25 Transmitted With Assist 13:44 Creatine Kinase, Total LAB 06/25/25 Complete 13:44 Troponin I High LAB 06/25/25 Complete Sensitivity 13:44 Basic Metabolic Panel LAB 06/25/25 Complete 13:44 Amiodarone 900mg Vial PHA 06/25/25 Complete (Cordarone 900mg V 15:00 Amiodarone 900mg Vial PHA 06/25/25 Complete (Cordarone 900mg V 15:00 Dextrose 5%-Water PHA 06/25/25 Complete (... W/Amiodarone 900m 21:15 Heparin 25,000 PHA 06/25/25 Complete Units/250ml D5w 15:00 *Nursing CPOE 06/25/25 Transmitted Communication: 14:48 Amiodarone PHA 06/25/25 Complete 150mg/100ml Bag 15:00 Amiodarone PHA 06/25/25 Complete 360mg/200ml Bag 15:15 Troponin I High LAB 06/25/25 Complete Sensitivity 16:04 Current Medications Medications (Trade) Dose Ordered Sig/Serina Route PRN Reason Start Time Stop Time Status Last Admin Dose Admin Amiodarone HCl 150 mg/Dextrose 103 ml @ 618 mls/hr ONCE IV 06/25/25 15:00 06/25/25 14:55 DC Amiodarone HCl 360 mg/Dextrose 207.2 ml @ 33.3 mls/hr AD IV 06/25/25 15:00 06/25/25 14:54 DC Amiodarone HCl 540 mg/Dextrose 310.8 ml @ 16.7 mls/hr [id number] IV 06/25/25 21:15 06/25/25 15:21 DC Amiodarone HCL/ Dextrose 100 ml @ 600 mls/hr ONCE ONCE IV 06/25/25 15:00 06/25/25 15:21 DC Amiodarone HCL/ Dextrose 200 ml @ 33.333 mls/ hr PROTOCOL IV 06/25/25 15:15 06/25/25 15:21 DC Heparin Sodium/ Dextrose 250 ml @ 0 mls/hr PROTOCOL IV 06/25/25 15:00 06/25/25 17:38 DC Vital Signs Date Time Temp Pulse Resp B/P (MAP) Pulse Ox O2 Delivery O2 Flow Rate FiO2 06/25/25 17:26 98.2 60 14 149/85 99 Room Air* 0 21 06/25/25 13:55 144 18 97/69 100 Room Air* 0 21 06/25/25 13:32 98.2 145 16 102/65 99 Room Air Medical Decision Making MDM Patient is a 74-year-old male with a past medical history of CAD, status post CABG , recurrent ventricular tachycardia, status post Bi V ICD placement. The patient states that he is having chest pain since 11:00 a.m., it was 3 hours prior to presentation to this facility. He said that in April 27, 2025 he had his defibrillator device replaced due to malfunction. I review his chart, patient has ejection fraction of 25-30%. Patient EKG on presentation showed ectopic atrial tachycardia rate 145, atrial premature complex. We will started chest pain workup. Device interrogation 15: 15 pm Device was interrogated by [employer], patient was on ventral tachycardia 150s, device was set up to treated at 146, no therapy was given. Myself and the [employer] Ramo Munoz was at bedside as well. ATP given through the device successful patient now the patient, patient now pacing at 60. He does have atrial fibrillation but rate remains on 60. No chest pain at moment. We will hold the amiodarone drip. BP 131/63 heart rate 63 Patient was evaluated at bedside by Dr. Chew associate professor of library science, recommendation is to increase amiodarone to 400 b.i.d., continue beta-terrence 50 b.i.d. Okay to be discharged home and follow up with the associate professor of library science outpatient. DX & DISP Disposition: Discharge Departure Impression: Primary Impression: Atrial fibrillation Additional Impressions: Ventricular tachycardia, Chest pain, CHF (congestive heart failure), NYHA class IV Condition: Stable Additional Instructions: RETURN TO ER FOR ANY ACUTE OR WORSENING SYMPTOMS. FOLLOW-UP IN 1-2 DAYS WITH PRIMARY PROVIDER FOR RECHECK OF TODAY'S SYMPTOMS. Referrals: GABBY ABDALLA MD (PCP) Script was given to the patient at bedside by Dr. Chew for amiodarone 400 mg b.i.d. BASHIR MASTERS MD Jun 25, 2025 13:50
[2025-06-25 13:59] LABS: IMMATURE GRANULOCYTE ABSOLUTE 0.05 K/uL (0-1); NUCLEATED RED BLOOD CELLS 0.0 % (0.0-0.19); PLATELET COUNT (AUTO) 332 K/uL (130-400); RED BLOOD CELL COUNT(AUTO) 3.81 MIL/uL (4.50-6.20); RED CELL DISTRIBUTION WIDTH 17.3 % (11.0-15.5); WHITE BLOOD COUNT (AUTO) 8.6 K/uL (4.8-10.8)
--- NOTE | 2025-06-25 14:02 | NUR ---
INTERROGATION I CALLED AND LEFT A MESSAGE FOR JONATAN FROM [employer] ABOUT OUR DEVICE TO INTERROGATE THE PTS PPM/AICD.
[2025-06-25 14:06] LABS: INR 3.33 (0.85-1.15)
[2025-06-25 14:07] LABS: CREATININE 0.9 mg/dL (0.5-1.3); GLOMERULAR FILTR. RATE CALC 89.0 mL/min (>90); GLUCOSE,RANDOM 131.0 mg/dL (70-105); SODIUM SERUM 139.0 mmol/L (136-145); UREA NITROGEN, BLOOD 16.0 mg/dL (7-18)
[2025-06-25 14:12] LABS: CREATINE KINASE, TOTAL 388.0 U/L (21-232)
--- NOTE | 2025-06-25 14:34 | NUR ---
[employer] INTERROGATION COMPLETE. PENDING REPORT
--- NOTE | 2025-06-25 14:35 | EKG ---
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 : 1950 Requested By: BASHIR THOMAS Order Number: [id number] Reading MD: Kirk Higgins Measurements Intervals [place] Rate: 145 P: 191 VT: 146 QRS: -23 QRSD: 203 T: 158 QT: 376 QTc: 583 Interpretive Statements WIDE COMPLEX TACHYCARDIA IVCD, consider LBBB Inferior infarct, acute Compared to ECG 05/01/2025 12:24:59 Atrial premature complex(es) now present Myocardial infarct finding now present AV dual-paced complex(es) or rhythm no longer present Ventricular-paced complex(es) or rhythm no longer present Electronically Signed On 06-26-2025 08:47:08 AUTOCAD ELECTRICAL DESIGNER by Kirk Higgins Please click the below link to view image of tracing.
--- NOTE | 2025-06-25 14:41 | NUR ---
PER [employer] REP ONLY AFIB RVR NO EVENTS NO ACTIVATIONS
--- NOTE | 2025-06-25 14:43 | NUR ---
DEVICE INTERROGATED. A FIB W/RVR
--- NOTE | 2025-06-25 14:54 | HMCIMG ---
EXAM: CR Chest, 1 View. CLINICAL HISTORY: CHEST PAIN COMPARISON: None provided. FINDINGS: LUNGS: The lungs show no infiltrate or other acute finding. PLEURAL SPACES: No pleural effusion or pneumothorax. MEDIASTINUM: Cardiac size and mediastinal contours within normal limits. AICD leads are in satisfactory positions. BONES: No aggressive appearing osseous lesion seen. IMPRESSION: No acute cardiopulmonary pathology is evident. /[place]
[2025-06-25] MEDS ORDERED: AMIOdarone 150MG/100ML BAG 100 ML IV ONE (15:00)
--- NOTE | 2025-06-25 15:13 | NUR ---
[employer] REP HERE AND SPEAKING W/DR GALLAGHER
[2025-06-25] MEDS ORDERED: AMIODARONE 360MG/200ML BAG 200 ML IV SCH (15:15)
--- NOTE | 2025-06-25 15:53 | NUR ---
CARDIOLOGY DR Corby FOSTER TO COME IN AND SPEAK W/PT. POSSIBLE D/C TO HOME FROM ED
--- NOTE | 2025-06-25 16:48 | CONS ---
[facility] CARDIOLOGY CONSULTATION NOTE Date Patient Seen: Jun 25, 2025 Time of Visit: 16:30 Reason for Consultation: [Atrial fibrillation] History of Present Illness: [74-year-old male patient that follows up in Cardiology Clinic with Dr. Yanez , with a history of mitral valve regurgitation status post mitral valve replacement with mechanical valve in March 2004, chronic anticoagulation with warfarin, coronary artery disease status post CABG with subsequent PCI to proximal LAD in the setting of NSTEMI 02/18/09, permanent atrial fibrillation, ischemic cardiomyopathy, status post insertion of dual chamber ICD for secondary prevention due to ventricular tachycardia in the setting of NSTEMI 02/18/09 with generator change out 06/15/16 (complicated by postop hematoma) with subsequent biventricular ICD upgrade 04/23/2025. Recurrent ventricular tachycardia on May 01, 2025 at slower rate below detectable level requiring defibrillation under the direction of Dr. Reji Mckenna with Bi V AICD. Repeat coronary angiogram on 04-30-25 revealing a patent SHAVER-LAD, attempts at percutaneous coronary intervention to left circumflex OMB 1 unsuccessful, possible patent saphenous vein graft to left circumflex/OMB system, 2D echo 04-28-25 , EF 25- 30%, prosthetic mitral valve, with peak and mean gradient of 25 and 9 mm Hg, prosthetic aortic valve with no AR , the patient presents to the emergency department today stating that he is having chest pain since 11:00 a.m., it was 3 hours prior to presentation to this facility. The patient underwent device interrogation today noted to be in atrial fibrillation since 05/25/2025, and in ventricular tachycardia since 05/29 2:00 a.m. today, with a ventricular rate of 140-150, his ventricular tachycardia was outside of the range four device shock, [employer] hvac sales representative performed ATP with the resolution of the VT and returned to atrial fibrillation, presenting ECG ectopic atrial tachycardia with a heart rate of 145 beats per minute, with PACs, chest x-ray with no acute ca rdiopulmonary pathology, troponin 9, creatinine 0.9, hemoglobin 11.2. Past Medical History: [Refer to chart ] Past Surgical History: [ Refer to HPI] Family History: [Refer to HPI ] Social History: [ Refer to HPI] Habits: [Never] smoker. [Denies] alcohol consumption. [Denies] illicit drug use Review of Systems: A review of12 point system was negative set per HPI Physical Examination: GENERAL: [No acute distress.] HEAD: [Normal with no signs of head trauma.] EYES: [PERRLA, EOMI, conjunctiva and sclera normal.] ENT: [Hearing grossly intact, normal oropharynx.] NECK: [Supple without JVD. There is no tenderness, lymphadenopathy, or masses. No thyromegaly. Normal carotid upstrokes without bruits.] LUNGS: [Clear breath sounds bilaterally. . No wheezes, or rhonchi.] HEART: [Irregularly irregular rate and rhythm. Normal S1 and S2 without murmurs, gallop or rub.] VASC: [Peripheral pulses +2 bilaterally.] ABD: [Bowel sounds normal, soft, nontender, no masses, no organomegaly. No audible bruits.] : [Not examined] LYMPH: [No lymphadenopathy noted.] EXT: [No clubbing, cyanosis or edema.] SKIN: [No rashes or lesions noted.] NEURO: [Awake, alert, and oriented x3. No focal sensory or strength deficits noted.] Vital Signs (last 8hr) Date Time Temp Pulse Resp B/P (MAP) Pulse Ox O2 Delivery O2 Flow Rate FiO2 06/25/25 13:55 144 18 97/69 100 Room Air* 0 21 06/25/25 13:32 98.2 145 16 102/65 99 Room Air Laboratory: [ ] Hematology Labs: Test 06/25/25 13:47 Range/Units White Blood Count 8.6 4.8-10.8 K/uL Red Blood Count 3.81 L 4.50-6.20 MIL/uL Hemoglobin 11.2 L 14.0-18.0 g/dL Hematocrit 35.5 L 42-54 % Mean Corpuscular Volume 93.2 79-99 fL Mean Corpuscular Hemoglobin 29.4 27.0-33.0 pg Mean Corpuscular Hemoglobin Concent 31.5 L 32.0-36.0 g/dL Red Cell Distribution Width 17.3 H 11.0-15.5 % Platelet Count 332 130-400 K/uL Mean Platelet Volume 8.9 7.5-10.5 fL Immature Granulocyte % (Auto) 0.6 0-1 % Neutrophils (%) (Auto) 75.5 40.0-77.0 % Lymphocytes (%) (Auto) 8.8 L 21.0-51.0 % Monocytes (%) (Auto) 13.2 H 3.0-13.0 % Eosinophils (%) (Auto) 1.3 0.0-8.0 % Basophils (%) (Auto) 0.6 0.0-5.0 % Neutrophils # (Auto) 6.5 1.8-7.7 K/uL Lymphocytes # (Auto) 0.8 L 1.0-4.8 K/uL Monocytes # (Auto) 1.1 H 0.1-1.0 K/uL Eosinophils # (Auto) 0.11 0.00-0.70 K/uL Basophils # (Auto) 0.05 0.00-0.20 K/uL Absolute Immature Granulocyte (auto 0.05 0-1 K/uL Nucleated Red Blood Cells 0.0 0.0-0.19 % White Cell Morphology Comment See comments Chemistry Labs: Test 06/25/25 13:47 Range/Units Sodium Level 139 136-145 mmol/L Potassium Level 3.9 3.5-5.1 mmol/L Chloride Level 103 101-111 mmol/L Carbon Dioxide Level 28 21-32 mmol/L Blood Urea Nitrogen 16 7-18 mg/dL Creatinine 0.9 0.5-1.3 mg/dL Glomerular Filtration Rate Calc 89 >90 mL/min Random Glucose 131 H 70-105 mg/dL Total Calcium 9.3 8.5-10.1 mg/dL Total Creatine Kinase 388 #H 21-232 U/L Troponin I High Sensitivity 9 4-75 ng/L Coagulation Labs: Test 06/25/25 13:47 Range/Units Prothrombin Time 31.3 H 9.6-11.6 SEC Prothromb Time International Ratio 3.33 H 0.85-1.15 Activated Partial Thromboplast Time 41.7 H 26.3-35.5 SEC Diagnostics / Radiology: [Copy/Paste Echos/Imaging Report here] Assessment: Recurrent ventricular tachycardia, suspected due to scarring. Severe multivessel coronary artery disease status post remote CABG with subsequent PCI to the LAD into the diagonal branch in the setting of a non-STEMI 02/18/2009 with known occlusion of vein grafts x 3. Ischemic cardiomyopathy. Status post mechanical mitral valve replacement in March 2004. Recent biventricular ICD upgrade 04/23/2025 from dual-chamber ICD.. Recurrent ventricular tachycardia on May 01, 2025 at slower rate below dete ctable level requiring defibrillation under the direction of Dr. Reji Mckenna with Bi V AICD Repeat coronary angiogram on 04-30-25 revealing a patent SHAVER-LAD, attempts at percutaneous coronary intervention to left circumflex OMB 1 unsuccessful, possible patent saphenous vein graft to left circumflex/OMB system 2D echo 04-28-25 , EF 25-30%, prosthetic mitral valve, with peak and mean gradient of 25 and 9 mm Hg, prosthetic aortic valve with no AR Plan: [#VT The patient presents to the emergency department today stating that he is having chest pain since 11:00 a.m., The patient underwent device interrogation today noted to be in atrial fibrillation since 05/25/2025, and in ventricular tachycardia since 05/29 2:00 a.m. today, with a ventricular rate of 140-150, his ventricular tachycardia was outside of the range four device shock, [employer] hvac sales representative performed ATP with the resolution of the VT and returned to atrial fibrillation Presenting ECG ectopic atrial tachycardia with a heart rate of 145 beats per minute, with PACs Chest x-ray with no acute cardiopulmonary pathology, troponin 9, creatinine 0.9, hemoglobin 11.2. We will increase amiodarone 400 mg p.o. every12 hours We will decrease Toprol-XL to 50 mg bid due to soft blood pressures Keep on telemetry, monitor/replace electrolytes as needed ( Mg > 2 , K > 4 ) The patient will require close follow up with Dr. Yanez and Dr. Mckenna upon discharge Thank you for this consult cardiology will sign off at this time the patient will follow up in clinic 1-2 weeks after discharge ATTESTATION BY PHYSICIAN I have seen and examined the patient, reviewed the above documentation, par ticipated in medical decision making, made necessary modifications, and agree with the treatment plan as documented by my mid-level provider above. MD KRISTIN Alanis,REG Esparza MD Jun 25, 2025 16:48
--- NOTE | 2025-06-25 16:53 | NUR ---
DR Corby FOSTER CURRENTLY AT BEDSIDE. ASKED FOR AND HANDED A SCRIPT TO CHANGE DOSE OF MEDICATION FOR AMIODARONE
[2025-06-25 17:26] VITALS: BP 149/85; PULSE 60; RESP 14; TEMP 98.2; O2SAT 99
== END 2025-06-25 17:38 | disposition home or self-care (01) ==
LOC: EDH 13:30
DX: I48.91 Unspecified atrial fibrillation (principal); I47.20 Ventricular tachycardia, unspecified; R07.89 Other chest pain; I11.0 Hypertensive heart disease with heart failure; I50.9 Heart failure, unspecified; I25.10 Atherosclerotic heart disease of native coronary artery without angina pectoris; I25.2 Old myocardial infarction; F17.200 Nicotine dependence, unspecified, uncomplicated; Z88.1 Allergy status to other antibiotic agents; Z88.2 Allergy status to sulfonamides; Z79.899 Other long term (current) drug therapy; Z79.01 Long term (current) use of anticoagulants; Z95.1 Presence of aortocoronary bypass graft; Z95.5 Presence of coronary angioplasty implant and graft; Z95.810 Presence of automatic (implantable) cardiac defibrillator; Z95.2 Presence of prosthetic heart valve
CPT/HCPCS: 36415; 71045; 80048; 82550; 84484; 85025; 85610; 85730; 93005; 99285; J0282; J7060

== ENCOUNTER 2025-07-08 12:49 | Emergency (ER) | payer OTHER ==
[~2025-07-08] VITALS: Ht 182.9 cm; Wt 102.1 kg
[~2025-07-08 12:49] MED LIST changes: -AMIO200T44 PO; +AMIO200T8 PO
--- NOTE | 2025-07-08 13:05 | NUR ---
PATIENT IN ROOM
[2025-07-08 13:17] LABS: IMMATURE GRANULOCYTE ABSOLUTE 0.03 K/uL (0-1); NUCLEATED RED BLOOD CELLS 0.0 % (0.0-0.19); PLATELET COUNT (AUTO) 255 K/uL (130-400); RED BLOOD CELL COUNT(AUTO) 4.06 MIL/uL (4.50-6.20); RED CELL DISTRIBUTION WIDTH 17.4 % (11.0-15.5); WHITE BLOOD COUNT (AUTO) 8.8 K/uL (4.8-10.8)
[2025-07-08 13:26] LABS: CREATININE 1.1 mg/dL (0.5-1.3); GLOMERULAR FILTR. RATE CALC 70.0 mL/min (>90); GLUCOSE,RANDOM 128.0 mg/dL (70-105); SODIUM SERUM 139.0 mmol/L (136-145); UREA NITROGEN, BLOOD 17.0 mg/dL (7-18)
[2025-07-08 13:47] LABS: INR 4.28 (0.85-1.15)
--- NOTE | 2025-07-08 13:51 | EKG ---
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
[2025-07-08] MEDS ORDERED: LOPERAMIDE HCL 2 MG CAP PO PRN (14:30)
[2025-07-08] MEDS ORDERED: ARTIFICAL TEARS SOL 15 ML OP PRN (14:30)
[2025-07-08] MEDS ORDERED: LACTULOSE 20 GM/30 ML UDCUP PO PRN (14:30)
[2025-07-08] MEDS ORDERED: LIDOCAINE HCL 2% VISCOUS 30 ML, MAG/ALUM/SIMETH 30ML 30 ML, DICYCLOMINE HCL 20 MG PO PRN (14:30)
[2025-07-08] MEDS ORDERED: MAG/ALUM/SIMETH 30 ML UDCUP PO PRN (14:30)
[2025-07-08] MEDS ORDERED: NITROGLYCERIN 0.4 MG SL TAB SL PRN (14:30)
[2025-07-08] MEDS ORDERED: BENZOCAINE/MENTH/CETYLPYRD CL 1 EACH LOZENGE MM PRN (14:30)
[2025-07-08] MEDS ORDERED: guaiFENesin-DM 200/20MG 10ML PO PRN (14:30)
--- NOTE | 2025-07-08 15:12 | ERN ---
General Chief Complaint: Palpitations Stated Complaint: ARRHYTHMIAS Time Seen by MD: 12:53 History of Present Illness Initial Comments 74-year-old male came in for palpitation. Allergies: Coded Allergies: sulfamethoxazole (Unverified Allergy, Unknown, 06/15/16) trimethoprim (Unverified Allergy, Unknown, 06/15/16) Home Meds Active Scripts Amiodarone HCl (Amiodarone HCl) 200 Mg Tablet, 1 TAB PO DAILY for 30 Days, #30 TAB 2 Refills Prov:SCOTTIE ESPANA MD 05/04/25 Amiodarone HCl (Pacerone) 200 Mg Tablet, 400 MG PO BID for 2 Days, #3 TAB Prov:SCOTTIE ESPANA MD 05/04/25 Metoprolol Tartrate (Lopressor 50Mg Tab) 50 Mg Tab, 50 MG PO TID for 30 Days, #90 TAB 1 Refill Prov:SCOTTIE ESPANA MD 05/04/25 Reported Medications Acetaminophen (8Hr Arthritis Pain Relief) 650 Mg Tablet.er, 650 MG PO Q8 for PAIN, TAB 04/28/25 Acetaminophen/Diphenhydramine (Tylenol Pm Exstr 500-25Mg Cplt) 500 Mg-25 Mg Tablet, 2 EACH PO HS, TAB 04/28/25 [Jentoven 3M Qhs] No Conflict Check, 3 MG PO Q HS 04/28/25 Ferrous Sulfate (Ferrous Sulfate) 324 Mg (65 Mg Iron) Tablet.dr, 324 MG PO BID, TAB 04/21/25 Vitamin E (Dl,Tocopheryl Acet) (Vitamin E) 180 Mg (400 Unit) Capsule, 180 MG PO AM, CAP 04/21/25 [place]-3/Dha/Epa/Fish Oil (Fish Oil 1,400 mg Softgel) 900 Mg (253 Mg-647 Mg)- 1,400 Mg Capsule.dr, 1 EACH PO AM, CAP 04/21/25 Folic Acid (Folvite) 1 Mg Tab, 1 MG PO HS, TAB 04/01/25 Atorvastatin Calcium (Atorvastatin Calcium) 10 Mg Tablet, 10 MG PO HS, TAB 03/20/24 Tramadol Hcl (Tramadol HCl) 50 Mg Tablet, 50 MG PO Q6HPRN PRN for PAIN, TAB 03/20/24 Losartan Potassium (Losartan Potassium) 50 Mg Tablet, 50 MG PO HS, TAB 02/26/21 Gemfibrozil (Gemfibrozil) 600 Mg Tablet, 600 MG PO BID, TAB 02/26/21 Furosemide (Lasix 40Mg Tab) 40 Mg Tablet, 40 MG PO DAILY, TAB 11/30/17 Past Medical History Past Medical History: Arrythmia, CAD, Heart Disease, Hypertension Past Surgical History: CABG, Pacer/AICD Surgical History Other: MECHANICAL VALVE REPLACEMENT ROS Dictation Palpitation Physical Exam General Appearance: (+) no apparent distress Orientation: (+) alert, (+) oriented x 3 Respiratory: (+) chest non-tender, (+) lungs clear Heart: (+) regular, (+) no gallop Gastrointestinal: (+) soft, (+) non-tender, (+) no organomegaly, (+) bowel sound present Extremities: (+) normal range of motion Results Laboratory and Microbiology Lab and Micro Result Laboratory Tests Test 07/08/25 13:08 White Blood Count 8.8 K/uL (4.8-10.8) Red Blood Count 4.06 MIL/uL (4.50-6.20) L Hemoglobin 12.0 g/dL (14.0-18.0) L Hematocrit 38.6 % (42-54) L Mean Corpuscular Volume 95.1 fL (79-99) Mean Corpuscular Hemoglobin 29.6 pg (27.0-33.0) Mean Corpuscular Hemoglobin Concent 31.1 g/dL (32.0-36.0) L Red Cell Distribution Width 17.4 % (11.0-15.5) H Platelet Count 255 K/uL (130-400) Mean Platelet Volume 9.3 fL (7.5-10.5) Immature Granulocyte % (Auto) 0.3 % (0-1) Neutrophils (%) (Auto) 79.2 % (40.0-77.0) H Lymphocytes (%) (Auto) 6.6 % (21.0-51.0) L Monocytes (%) (Auto) 12.7 % (3.0-13.0) Eosinophils (%) (Auto) 0.9 % (0.0-8.0) Basophils (%) (Auto) 0.3 % (0.0-5.0) Neutrophils # (Auto) 7.0 K/uL (1.8-7.7) Lymphocytes # (Auto) 0.6 K/uL (1.0-4.8) L Monocytes # (Auto) 1.1 K/uL (0.1-1.0) H Eosinophils # (Auto) 0.08 K/uL (0.00-0.70) Basophils # (Auto) 0.03 K/uL (0.00-0.20) Absolute Immature Granulocyte (auto 0.03 K/uL (0-1) Nucleated Red Blood Cells 0.0 % (0.0-0.19) White Cell Morphology Comment See comments Prothrombin Time 39.3 SEC (9.6-11.6) *H Prothromb Time International Ratio 4.28 (0.85-1.15) *H Activated Partial Thromboplast Time 43.1 SEC (26.3-35.5) H Sodium Level 139 mmol/L (136-145) Potassium Level 4.1 mmol/L (3.5-5.1) Chloride Level 104 mmol/L (101-111) Carbon Dioxide Level 28 mmol/L (21-32) Blood Urea Nitrogen 17 mg/dL (7-18) Creatinine 1.1 mg/dL (0.5-1.3) Glomerular Filtration Rate Calc 70 mL/min (>90) Random Glucose 128 mg/dL (70-105) H Total Calcium 8.9 mg/dL (8.5-10.1) Troponin I High Sensitivity 10 ng/L (4-75) MDM MDM: Differential diagnosis: Rationale: Tests considered and ordered secondary to shared decision making include: labs, ECG and radiology Previous outside records reviewed: Old ER visits. Risk of complication and/or morbidity or mortality of patient management: None Medications-Per medication reconciliation Need for hospitalization: Patient does meet criteria for hospitalization. Need for emergency major/minor surgery: No There are no social concerns with this patient. Prescription drug management Prescriptions will include symptomatic care Patient's prior external medical records from other ER visits were reviewed by me as indicated. Prior testing and results from previous visits were reviewed. Prior tests were taken into account with medical decision making and resource utilization, independent historian/historians were used to obtain complete medical history. I independently interpreted the test that were performed, results were reviewed by me and considered findings on radiology if ordered. Medical management and examination interpretation discussions were had by me with other qualified healthcare professionals as indicated for the patient's care. ED Course Orders Procedure Category Date Status Time 12 Lead Ekg Tracing- EKG 07/08/25 Complete Technical 12:53 Cbc With Differential LAB 07/08/25 Complete 12:53 Basic Metabolic Panel LAB 07/08/25 Complete 12:53 Troponin I High LAB 07/08/25 Complete Sensitivity 12:53 Pt And Ptt LAB 07/08/25 Complete 12:53 Vital Signs Date Time Temp Pulse Resp B/P (MAP) Pulse Ox O2 Delivery O2 Flow Rate FiO2 07/08/25 13:05 98.8 133 20 124/82 98 Room Air* 0 21 07/08/25 12:52 98.8 133 20 124/82 98 Room Air DX & DISP Disposition: Inpatient Departure Impression: Primary Impression: Palpitation Condition: Stable Referrals: GABBY ABDALLA MD (PCP) EDITH SALVADOR MD Jul 08, 2025 15:12
--- NOTE | 2025-07-08 15:56 | NUR ---
PER DR. ELENA MORALESCEL ADMISSION ORDERS
[2025-07-08] MEDS ORDERED: MEXI150C17 PO (15:57)
--- NOTE | 2025-07-08 15:59 | NUR ---
SPOKE TO TIM MANNING IN REGARDS TO CANCEL THE ADMISSION FOR ED 11.
[2025-07-08] MEDS: MEXILETINE HCL 150 MG CAP PO STA (16:15)
--- NOTE | 2025-07-08 16:22 | NUR ---
DCP: HOME Pt is retired, lives at home with Delmi Bhardwaj [phone]. P is independent of [facility], and [facility], no Dme or in home care services. PCP is shelton Talley and uses [facility] for rx needs. DCP is home
[2025-07-08 18:05] VITALS: BP 163/75; PULSE 61; RESP 20; TEMP 98.8; O2SAT 98
--- NOTE | 2025-07-08 18:25 | NUR ---
PATIENT WAS DISCHARGE FROM ER
[2025-07-08] MEDS ORDERED: FAMOTIDINE 20MG TAB PO SCH (21:00)
== END 2025-07-08 18:04 | disposition home or self-care (01) ==
LOC: EDH 12:49 → UNDOADMIN 14:17 → EDHIP 14:17 → UNDODISIN 18:04
DX: R00.2 Palpitations (principal); I10 Essential (primary) hypertension; I25.10 Atherosclerotic heart disease of native coronary artery without angina pectoris; Z86.2 Personal history of diseases of the blood and blood-forming organs and certain disorders involving the immune mechanism; Z95.1 Presence of aortocoronary bypass graft; Z95.2 Presence of prosthetic heart valve; Z88.8 Allergy status to other drugs, medicaments and biological substances
CPT/HCPCS: 36415; 80048; 84484; 85025; 85610; 85730; 93005; 99285; G0378